=== PATIENT | male | born 1955 | race Caucasian/White ===

== ENCOUNTER 2020-08-15 06:51 | Outpatient (NON) | payer OTHER, SELFPAY ==
[2020-08-16 00:29] LABS: SARS-CoV-2 RNA PCR Negative
== END 2020-08-15 06:52 ==
PROVIDERS: PCP Family Medicine; Visit Provider Family Medicine
DX: Z20.828 Contact with and (suspected) exposure to other viral communicable diseases (principal)
CPT/HCPCS: 87635; C9803; U0003

== ENCOUNTER 2021-04-27 07:20 | Outpatient (CLI) | payer OTHER, SELFPAY ==
[2021-04-27 08:13] LABS: Basophils Absolute Auto 0.1 K/mm3 (0.0-0.1); Basophils Percent Auto 1.3 % (0.2-1.2); Eosinophils Absolute Auto 0.2 K/mm3 (0-0.3); Eosinophils Percent Auto 2.8 % (0-4.4); Hematocrit 43.2 % (42.0-52.0); Hemoglobin 13.7 g/dL (14.0-18.0); Immature Granulocyte Absolute 0.03 K/mm3 (0.00-0.031); Immature Granulocyte Percent A 0.4 % (0-0.5); Lymphocytes Absolute Auto 1.92 K/mm3 (0.9-3.2); Lymphocytes Percent Auto 24.8 % (18.3-44.2); Mean Corpuscular HGB Conc 31.7 g/dl (32-36); Mean Corpuscular Hemoglobin 30.1 pg (26-34); Mean Corpuscular Volume 94.9 fl (80-100); Mean Platelet Volume 11.3 fl (7.4-10.4); Monocytes Absolute Auto 0.9 K/mm3 (0.1-0.6); Monocytes Percent Auto 11.8 % (2.6-8.5); Neutrophils Absolute Auto 4.6 K/mm3 (1.3-6.7); Neutrophils Percent Auto 58.9 % (45.5-73.1); Platelet Count Result 235 k/mm3 (150-375); Red Blood Count 4.55 M/mm3 (4.6-6.20); Red Cell Distribution Width 12.5 % (11.5-14.5); White Blood Count 7.7 K/mm3 (4.5-10.0)
[2021-04-27 08:19] LABS: Alanine Aminotransferase 18 U/L (4-50); Albumin Level 4.7 g/dL (3.5-5.1); Alkaline Phosphatase 56 U/L (38-126); Anion Gap 8 mmol/L (8-16); Aspartate Amino Transferase 25 U/L (17-59); Bilirubin,Total 0.6 mg/dL (0.2-1.3); Blood Urea Nitrogen 14 mg/dL (9-20); Calcium 9.8 mg/dL (8.4-10.2); Carbon Dioxide 30 mmol/L (22-30); Chloride 103 mmol/L (98-107); Cholesterol 267 mg/dL (0-200); Estimated Glomerular Filt Rate > 60; Glucose 103 mg/dL (65-110); HDL Direct 52 mg/dL; Potassium 4.7 mmol/L (3.4-5.0); Sodium 141 mmol/L (137-145); Triglycerides 176 mg/dL (<150)
[2021-04-27 08:30] LABS: LDL Cholesterol Direct 147 mg/dL
[2021-04-27 09:04] LABS: Vitamin D 25 Hydroxy 38.3 ng/mL
[2021-04-27 11:52] LABS: Prostate Specific Antigen 0.5 ng/mL (< OR = 4.0)
== END 2021-04-27 07:21 | disposition home or self-care (01) ==
PROVIDERS: PCP Family Medicine; Visit Provider Nurse Practitioner Family
DX: E55.9 Vitamin D deficiency, unspecified (principal); E78.5 Hyperlipidemia, unspecified; Z12.5 Encounter for screening for malignant neoplasm of prostate; Z13.29 Encounter for screening for other suspected endocrine disorder
CPT/HCPCS: 36415; 80053; 80061; 82306; 84153; 84443; 85025; G0103

== ENCOUNTER 2022-08-15 09:10 | Outpatient (CLI) | payer MEDICARE, OTHER, SELFPAY ==
[2022-08-15 10:05] LABS: Hematocrit 40.7 % (42.0-52.0); Hemoglobin 13.2 g/dL (14.0-18.0); Mean Corpuscular HGB Conc 32.4 g/dl (32-36); Mean Corpuscular Hemoglobin 30.9 pg (26-34); Mean Corpuscular Volume 95.3 fl (80-100); Mean Platelet Volume 11.5 fl (7.4-10.4); Platelet Count Result 226 k/mm3 (150-375); Red Blood Count 4.27 M/mm3 (4.6-6.20); Red Cell Distribution Width 12.9 % (11.5-14.5)
[2022-08-15 10:17] LABS: Anion Gap 7 mmol/L (8-16); Blood Urea Nitrogen 17 mg/dL (9-20); Calcium 9.1 mg/dL (8.4-10.2); Carbon Dioxide 31 mmol/L (22-30); Chloride 100 mmol/L (98-107); Cholesterol 230 mg/dL (0-200); Estimated Glomerular Filt Rate > 60; Glucose 93 mg/dL (65-110); HDL Direct 54 mg/dL; Potassium 4.1 mmol/L (3.4-5.0); Sodium 138 mmol/L (137-145); Triglycerides 103 mg/dL (<150)
[2022-08-15 10:28] LABS: LDL Cholesterol Direct 133 mg/dL
[2022-08-15 10:46] LABS: Prostate Specific Antigen 0.6 ng/mL (< OR = 4.0)
[2022-08-15 13:16] LABS: Vitamin D 25 Hydroxy 41.4 ng/mL
== END 2022-08-15 09:11 | disposition home or self-care (01) ==
LOC: ANHLAB 09:19
PROVIDERS: PCP Family Medicine; Visit Provider Nurse Practitioner Family
DX: R21 Rash and other nonspecific skin eruption (principal); Z13.1 Encounter for screening for diabetes mellitus; E78.5 Hyperlipidemia, unspecified; E78.2 Mixed hyperlipidemia; Z12.5 Encounter for screening for malignant neoplasm of prostate; E55.9 Vitamin D deficiency, unspecified; Z13.29 Encounter for screening for other suspected endocrine disorder
CPT/HCPCS: 36415; 80048; 80061; 82306; 84153; 84443; 85027; G0103

== ENCOUNTER 2022-10-23 00:52 | Day surgery (SDC) | payer MEDICARE, OTHER, SELFPAY ==
[2022-10-10 13:50] VITALS: BMI 23.7
[2022-10-23 09:39] VITALS: BP 170/91; PULSE 79; RESP 18; TEMP 36.2; O2SAT 100
[2022-10-23] MEDS: LACTATED RINGERS 1,000 ML 150 ML IV CONT (09:43)
--- NOTE | 2022-10-23 10:00 | P.PNAN_ITS ---
Anes - Initial Pre Proc Eval Procedure: Operation Date: 10/23/22 11:00 Proposed Procedures p Screening Colonoscopy - Scott Caicedo MD Date/Time: 10/23/22 10:00 Surgeon: Scott Caicedo MD Pre Op Diagnosis: hx of colon polyps Patient Data Age: 67 Gender: M Height: 1.75 m Weight: 71.1 kg Last Vital Signs Temp 97.2 F L 10/23/22 09:39 Pulse 79 10/23/22 09:39 Resp 18 10/23/22 09:39 BP 170/91 H 10/23/22 09:39 Pulse Ox 100 10/23/22 09:39 O2 Del Method Room Air 10/23/22 09:39 Allergies Allergy/AdvReac Type Severity Reaction Status Date / Time No Known Allergies Allergy Verified 10/23/22 09:37 Home Medications Medication Instructions Recorded Confirmed Type multivitamin with minerals-folic 1 tablet PO DAILY 10/10/22 10/23/22 History acid 0.4 mg tablet omega-3 fatty acids-vitamin E 1 cap PO DAILY 10/10/22 10/23/22 History 1,000 mg capsule Patient hx anesthesia problems: none Family hx anesthesia problems: none Results Review: All pre-operative results and documents have been reviewed as part of the pre- operative evaluation. [facility] Past Medical History Medical History AK (actinic keratosis) Basal cell carcinoma of skin, site unspecified BMI 23.0-23.9, adult BMI 24.0-24.9, adult Elevated cholesterol Excessive cerumen in right ear canal Flu vaccine need Heartburn Hiatal hernia History of basal cell carcinoma Mixed hyperlipidemia Screening for colon cancer Screening for diabetes mellitus Screening for lipid disorders Screening for prostate cancer SK (seborrheic keratosis) Skin cancer screening Strep throat Urticaria Family History Family History Father Cerebrovascular accident Family history of diabetes mellitus in first degree relative Family history of coronary artery disease Mother Sibling No problems noted. 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 Spiritual care concerns: No Anes - Eval Final PreProcedure Day of Procedure 10/23/22 10:00 Patient weight: normal Heart: regular rate and rhythm Lungs: clear to auscultation Airway: Mallampati scale class II Neurological: alert and oriented Last oral intake: >/= 8 hours ASA classification: II Emergent: no Anesthetic plan: proceed Anesthesia type and monitoring: general GIVS and standard monitoring Results Review: All pre-operative results and documents have been reviewed as part of the pre- operative evaluation. Informed Consent: The patient's anesthetic plan and its attendant risks and benefits were discussed with the patient/family/POA. Questions were solicited and answers provided to the satisfaction of the patient/family/POA.
--- NOTE | 2022-10-23 10:09 | PM.HPGS ---
History of Present Illness History of Present Illness Consent: Risks, benefits, and alternatives have been discussed and questions answered. Patient agrees to proceed with procedure. Chief complaint: hx of colon polyps Narrative: Sung Cordoba is a 67 year old male with colon polyp 6 years ago Review of Systems Constitutional: Constitutional: Denies headache(s) and Denies weakness Eyes: Eyes: Denies blurry vision ENT: Reports Normal hearing present, Denies headache(s) and Denies neck pain Cardiovascular: Cardiovascular: Denies chest pain and Denies dyspnea Respiratory: Respiratory: Denies dyspnea Gastrointestinal: Gastrointestinal: Reports no additional gastrointestinal complaints Genitourinary: Genitourinary: Denies dysuria Musculoskeletal: Musculoskeletal: Denies neck pain Integumentary/Breasts: Skin/Breast: Denies dry skin Neurologic: Reports Normal hearing present, Denies headache(s) and Denies weakness Psychiatric: Psychiatric: Denies anxiety Endocrine: Endocrine: Denies change in body appearance Hematologic/Lymphatic: Hematologic/Lymphatic: Denies easy bleeding Allergic/Immunologic: Allergic/Immunologic: Denies urticaria PMFSH Past Medical History Medical History AK (actinic keratosis) Basal cell carcinoma of skin, site unspecified BMI 23.0-23.9, adult BMI 24.0-24.9, adult Elevated cholesterol Excessive cerumen in right ear canal Flu vaccine need Heartburn Hiatal hernia History of basal cell carcinoma Mixed hyperlipidemia Screening for colon cancer Screening for diabetes mellitus Screening for lipid disorders Screening for prostate cancer SK (seborrheic keratosis) Skin cancer screening Strep throat Urticaria Family History Family History Father Cerebrovascular accident Family history of diabetes mellitus in first degree relative Family history of coronary artery disease Mother Sibling No problems noted. 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 Spiritual care concerns: No Meds Home Medications and Allergies Home Medications Medication Instructions Recorded Confirmed Type multivitamin with minerals-folic 1 tablet PO DAILY 10/10/22 10/23/22 History acid 0.4 mg tablet omega-3 fatty acids-vitamin E 1 cap PO DAILY 10/10/22 10/23/22 History 1,000 mg capsule Allergies Allergy/AdvReac Type Severity Reaction Status Date / Time No Known Allergies Allergy Verified 10/23/22 09:37 Vital Signs Vital Signs - 24 hr 10/23/22 09:39 Temperature 97.2 F L Pulse Rate 79 Respiratory Rate 18 Blood Pressure 170/91 H Pulse Oximetry 100 Oxygen Delivery Room Air Exam Const: General: comfortable and no acute distress HENMT: Face/Nose/Sinus: Normal nares present Eyes: General: appearance normal, both eyes and all related structures Neck: Neck: no JVD Resp: Auscultation: clear to auscultation bilaterally Cardio: Rate: regular rate Rhythm: regular rhythm GI: Inspection: non-distended GI Palp: Yes Soft to palpation Skin: General skin exam: normal color Neuro: General: gait normal Speech: normal speech Extrem: General: normal to inspection Psych: Mental Status: mental status grossly normal Assessment and Plan Assessment and plan (1) Screening for malignant neoplasm of colon: Code(s): Z12.11 - Encounter for screening for malignant neoplasm of colon Status: Acute Assessment and Plan: colonoscopy
[2022-10-23 10:34] VITALS: BP 144/84; PULSE 71; RESP 20; O2SAT 100
[2022-10-23 10:44] VITALS: BP 143/89; PULSE 77; RESP 16; O2SAT 100
[2022-10-23 10:54] VITALS: BP 166/92; PULSE 68; RESP 17; O2SAT 100
== END 2022-10-23 11:07 | disposition home or self-care (01) ==
PROVIDERS: PCP Family Medicine; Visit Provider Internal Medicine Gastroenterology
PROC: 0DJD8ZZ Inspection of Lower Intestinal Tract, Via Natural or Artificial Opening Endoscopic (ICD-10-PCS; CPT 45378; principal; 2022-10-23 11:00)
DX: Z12.11 Encounter for screening for malignant neoplasm of colon (principal); K63.5 Polyp of colon; D12.2 Benign neoplasm of ascending colon; K64.8 Other hemorrhoids; E78.5 Hyperlipidemia, unspecified; F10.90 Alcohol use, unspecified, uncomplicated; Z85.828 Personal history of other malignant neoplasm of skin; Z79.899 Other long term (current) drug therapy
CPT/HCPCS: 45380; 45385; 88305; J2704; J7120

== ENCOUNTER 2022-12-05 08:28 | Outpatient (CLI) | payer MEDICARE, OTHER, SELFPAY ==
--- NOTE | ~2022-12-05 | MR_ITS ---
EXAMINATION: MR brain/brain stem wo/w con DATE: 12/05/2022 09:42 INDICATION: Pituitary mass. TECHNIQUE: Magnetic resonance imaging (MRI) of the brain and brainstem was performed without and with 14 mL MultiHance intravenous contrast. COMPARISON: None. FINDINGS: The pituitary is enlarged and measures 18 x 18 x 14 mm. There is a 15 x 9 x 10 mm nonenhanc ing cyst with irregular margins in the pituitary. There is rightward deviation of the infundibulum. T here are scattered areas of nonspecific increased T2-weighted signal intensity in the cerebral white matter, which is within normal limits for the patient's age. There is no acute ischemic infarct or in tracranial hemorrhage. The ventricles are normal in size. The orbits are normal. The paranasal sinuse s are clear. The mastoid air cells are normal. IMPRESSION: 1. Enlarged pituitary with central nonenhancing cyst. This finding may be a pituitary macroadenoma or craniopharyngioma with cystic component, or it may be normal pituitary deformed by a Rathke cleft cy st. Reviewed, dictated and finalized at location A. E GRINDER IMPRESSION: 1. Enlarged pituitary with central nonenhancing cyst. This finding may be a pit uitary macroadenoma or craniopharyngioma with cystic component, or it may be no rmal pituitary deformed by a Rathke cleft cyst.
== END 2022-12-05 08:29 | disposition home or self-care (01) ==
PROVIDERS: PCP Family Medicine; Visit Provider Nurse Practitioner Family
DX: G93.89 Other specified disorders of brain (principal); R93.0 Abnormal findings on diagnostic imaging of skull and head, not elsewhere classified
CPT/HCPCS: 70553; A9577

== ENCOUNTER 2025-09-16 07:41 | Outpatient (CLI) | payer MEDICARE, OTHER, SELFPAY ==
[2025-09-16 08:08] LABS: Hematocrit 41.1 % (42.0-52.0); Hemoglobin 13.4 g/dL (14.0-18.0); Immature Granulocyte Percent A 0.2 % (0-0.5); Lymphocytes Absolute Auto 1.69 K/mm3 (0.9-3.2); Mean Corpuscular HGB Conc 32.6 g/dl (32-36); Mean Corpuscular Hemoglobin 30.7 pg (26-34); Mean Corpuscular Volume 94.3 fl (80-100); Nucleated Red Blood Cells Absolute Auto 0.000 K/mm3 (0.0-0.012); Nucleated Red Blood Cells Perc 0.0 % (0.0-0.2); Platelet Count Result 206 k/mm3 (150-375); Red Blood Count 4.36 M/mm3 (4.6-6.20); White Blood Count 8.4 K/mm3 (4.5-10.0)
[2025-09-16 08:32] LABS: Alanine Aminotransferase 30 U/L (6-50); Albumin Level 4.6 g/dL (3.5-5.1); Alkaline Phosphatase 66 U/L (38-126); Anion Gap 5 mmol/L (4-12); Aspartate Amino Transferase 41 U/L (17-59); Bilirubin,Total 0.8 mg/dL (0.2-1.3); Blood Urea Nitrogen 16 mg/dL (9-20); Calcium 9.3 mg/dL (8.4-10.2); Carbon Dioxide 30 mmol/L (22-30); Chloride 102 mmol/L (98-107); Cholesterol 163 mg/dL (0-200); Estimated Glomerular Filt Rate > 60; Glucose 95 mg/dL (65-110); HDL Direct 58 mg/dL; Potassium 4.3 mmol/L (3.4-5.0); Sodium 137 mmol/L (137-145); Total Protein 7.5 g/dL (6.3-8.2); Triglycerides 82 mg/dL (<150)
[2025-09-16 09:09] LABS: Prostate Specific Antigen 1.5 ng/mL (< OR = 4.0); Thyroid Stimulating Hormone 5.130 uIU/mL (0.465-4.680)
== END 2025-09-16 07:42 | disposition home or self-care (01) ==
PROVIDERS: PCP Family Medicine
DX: E55.9 Vitamin D deficiency, unspecified (principal); Z12.5 Encounter for screening for malignant neoplasm of prostate; I10 Essential (primary) hypertension; E78.2 Mixed hyperlipidemia; E23.6 Other disorders of pituitary gland
CPT/HCPCS: 36415; 80053; 80061; 82306; 84153; 84443; 85025; G0103

== ENCOUNTER 2025-09-27 11:49 | Outpatient (CLI) | payer MEDICARE, OTHER, SELFPAY ==
--- OUTSIDE RECORDS SUMMARY | 2025-09-27 12:05 | XMS_ITS | Clinical Summary ---
Author Organization [facility] Address [address] [place] [address] Phone Care Team Providers Care Tube And Manifold Builder Name Role Phone Amalia Avila TOOTH GRINDER, KNITTING MACHINE FIXER Primary Care Provide r Markell Hayes MD Unavailable [phone] Sonia Forbes MD Unavailable Allergies No known active allergies Medications Multiple Vitamins-Facility Manager Histology als (MULTIVITAMIN ADULTS PO) Take by mouth. With minerals- folic acid Active [place]-3 Fatty Acids (OMEGA 3 PO) Take by mouth. Activ e amLODIPine (NORVASC) 5 MG Tablet Take 5 mg by mouth daily. Active COVID-19 mRNA Vaccine, Pfizer, 30 MCG/0.3ML Suspension 2 Active atorvastatin (LIPITOR) 10 MG Tablet Take 1 Tablet by mouth daily. 90 Tablet 3 3 Active aspirin EC 81 MG Tablet Delayed Response Take 81 mg by mouth daily. Active cabergoline (DOSTINEX) 0.5 MG TabletIndicati ons:Hyperprola ctinemia Take 0.5 Tablets by mouth twice a week. 4 Tablet 3 5 Active dexamethasone (DECADRON) 1 MG Tablet Take dexamethasone 1 mg at 11:00 pm and check morning cortisol as directed 1 Tablet Active Encounters Date Type Department Care Team Description 09/05/2025 Results Follow-Up [facility] Endocrinology [facility] [address] [place] [address] Sonia Forbes MD PROLACTIN, CORTISOL, CMP (COMPREHENSIVE METABOLIC PANEL) 08/29/2025 Travel 08/09/2025 10:00 AM SPINDLE PLUMBER Office Visit [facility] Neurology [facility] [address] [place] [address] Markell Hayes MD Pituitary lesion (Primary Dx) Discharge Disposition: Discharged to home or Selfcare 08/09/2025 9:00 AM SPINDLE PLUMBER Office Visit [facility] Endocrinology [facility] [address] [place] [address] Sonia Forbes MD Hyperprolactinemia (Primary Dx); Pituitary lesion; Prolactinoma Discharge Disposition: Discharged to home or Selfcare 08/09/2025 Travel from Last 3 Months Family History Medical History Relation Name Comments Stroke Father Lung Cancer Mother Relation Name Status Comments Father Mother Social History Tobacco Use Types Packs/Day Years Used Date Smoking Tobacco: Never Smokeless Tobacco: Never Tobacco Cessation:Counseling Given: Not Answered Alcohol Use Standard Drinks/Week Comments Yes 0 (1 standard drink = 0.6 oz pur e alcohol) 1 per week Sex and Gender Information Value Date Recorded Sex Assigned at Not on file Legal Sex Male 3:13 PM CDT Gender Identity Not on file Sexual Orientation Not on file Last Filed Vital Signs Vital Sign Reading Time Taken Comments Blood Pressure 116/66 08/09/2025 9:57 AM SPINDLE PLUMBER Pulse 67 08/09/2025 9:57 AM SPINDLE PLUMBER Temperature 36.4 C (97.6 F) 08/09/2025 9:57 AM SPINDLE PLUMBER Respiratory Rate 16 08/09/2025 9:57 AM SPINDLE PLUMBER Oxygen Saturation 100% 08/09/2025 9:57 AM SPINDLE PLUMBER Inhaled Oxygen Concentration - - Weight 69.2 kg (152 lb 9.6 oz) 08/09/2025 9:57 A M SPINDLE PLUMBER Height 175.3 cm (5' 9) 08/09/2025 9:57 AM SPINDLE PLUMBER Body Mass Index 22.54 08/09/2025 9:57 AM SPINDLE PLUMBER Plan of Treatment Health Maintenance Due Date Last Done Comments Hepatitis C Virus (HCV) Screening 1956 Cologuard 2001 Colonoscopy 2001 Colorectal Cancer Screening 2001 Immunochemical Fecal Occult Blood 2001 Pneumococcal Immunization (50+ years) (1 of 1 - PCV) 2006 Zoster Immunization (1 of 2) 2006 PSA Discussion 2011 Medicare Initial AWV [id number] 06/06/2022 SARS-COV-2 Immunization ( season) 2025 08/31/2024, 07/22/2023, 04/11/2022, Additional history exists Respiratory Syncytial Virus (RSV) Immunization (Adult) (1 - 1-dose 75+ series) 2031 Hepatitis B Immunization Completed 002, 05/22/2001, 02/23/2001 DTaP/Tdap/Td Immunization Discontinued 2018, 01/09/2000, 05/19/1990 TdaP Immunization Completed 03/28/2019 Influenza Immunization Completed , 07/29/2024, 08/06/2023, Additional history exists Human Papillomavirus (HPV) Immunization (No Doses Required) Completed Meningococcal Immunization (ACWY) Aged Out No longer eligible based on patient's age to complete this topic Rotavirus Immunization Aged Out No lo nger eligible based on patient's age to complete this topic Procedures Procedure Name Priority Date/Time Associated Diagnosis Comments CMP (COMPREHENSIVE METABOLIC PANEL) Routine 08/29/2025 8:11 AM SPINDLE PLUMBER Hyperprolactinemia Prolactinoma CORTISOL Routine 08/29/2025 8:11 AM SPINDLE PLUMBER Hyperprolactinemia Prolactinoma PROLACTIN Routine 08/29/2025 8:11 AM SPINDLE PLUMBER Hyperprolactinemia Prolactinoma from Last 3 Months Results * PROLACTIN (08/29/2025 8:11 AM SPINDLE PLUMBER) Prolactin 16.7 2.6 - 18.1 ng/mL 08/29/2025 6:27 PM SPINDLE PLUMBER [facility] Blood Venipuncture / Unknown 08/29/2025 8:11 AM SPINDLE PLUMBER 08/29/2025 8:52 AM SPINDLE PLUMBER us Sonia Forbes MD CHEMISTRY ORDERABLES Final Resul t Performing Organization Address City/[facility]/ZIP Co de Phone Number [facility] [address] [place] [address], [place] * CORTISOL (08/29/2025 8:11 AM SPINDLE PLUMBER) CORTISOL 1.1 mcg/dL 08/29/2025 10:19 AM SPINDLE PLUMBER [facility] Blood Venipuncture / Unknown 08/29/2025 8:11 AM SPINDLE PLUMBER 08/29/2025 8:52 AM SPINDLE PLUMBER Narrative [facility] - 08/29/2025 10:19 AM SPINDLE PLUMBER AM: 4 TO 19 mcg/dL PM: Approx. Half of AM Value us Sonia Forbes MD CHEMISTRY ORDERABLES Final Resul t Performing Organization Address City/[facility]/ZIP Co de Phone Number [facility] [address] [place] [address] * (ABNORMAL) CMP (COMPREHENSIVE METABOLIC PANEL) (08/29/2025 8:11 AM SPINDLE PLUMBER) SODIUM 140 136 - 145 mmol/L 08/29/2025 9:15 AM SPINDLE PLUMBER [facility] POTASSIUM 5.1 3.5 - 5.1 mmol/L 08/29/2025 9:15 AM SPINDLE PLUMBER [facility] CHLORIDE 102 98 - 107 mmol/L 08/29/2025 9:15 AM SPINDLE PLUMBER [facility] CO2, VENOUS 28 22 - 30 mmol/L 08/29/2025 9:15 AM SPINDLE PLUMBER [facility] ANION GAP 15.1 <18.0 mmol/L 08/29/2025 9:15 AM SPINDLE PLUMBER [facility] GLUCOSE 105(H) 70 - 99 mg/dL 08/29/2025 9:15 AM [facility] BUN 16 8 - 26 mg/dL 08/29/2025 9:15 AM [facility] CREATININE, BLOOD 1.02 0.70 - 1.30 mg/dL 08/29/2025 9:15 AM [facility] BUN/CREATININE RATIO 16 12 - 20 ratio 08/29/2025 9:15 AM [facility] TOTAL PROTEIN 8.0 6.0 - 8.0 g/dL 08/29/2025 9:15 AM [facility] ALBUMIN 5.0 3.5 - 5.0 g/dL 08/29/2025 9:15 AM [facility] A/G RATIO 1.7 1.0 - 2.2 08/29/2025 9:15 AM [facility] CALCIUM 10.0 8.7 - 10.5 mg/dL 08/29/2025 9:15 AM [facility] T BILI 0.8 0.2 - 1.2 mg/dL 08/29/2025 9:15 AM [facility] SGOT (AST) 36 <43 U/L 08/29/2025 9:15 AM [facility] Comment: Specimen is hemolyzed. In vitro hemolysis could affect results. Clinical correlation advised. SGPT (ALT) 30 <56 U/L 08/29/2025 9:15 AM [facility] ALKALINE PHOSPHATASE 76 40 - 150 U/L 08/29/2025 9:15 AM [facility] IS THE PATIENT REQUIRED TO BE FASTING? No 08/29/2025 9:15 AM [facility] GFR, ESTIMATED >60 >=60 08/29/2025 9:15 AM [facility] Comment: Creatinine Clearance is the preferred criteria for selecting drug dose adjustments in renally impaired patients. The GFR is provided as additional pertinent clinical information. GFR is reported in mL/min/1.73 sq m. Calculation based on the 2020 Chronic Kidney Disease Epidemiology Collaboration (CKD-EPI) equation refit without adjustment for race. GFR, EST. >60 >=60 025 9:15 AM SPINDLE PLUMBER [facility] Comment: Creatinine Clearance is the preferred criteria for selecting drug dose adjustments in renally impaired patients. The GFR is provided as additional pertinent clinical information. GFR is reported in mL/min/1.73 sq m. Calculation based on the 2009 Chronic Kidney Disease Epidemiology Collaboration (CKD-EPI). GFR, EST. NONAFRICAN >60 >=60 08/29/2025 9:15 AM SPINDLE PLUMBER [facility] Comment: Creatinine Clearance is the preferred criteria for selecting drug dose adjustments in renally impaired patients. The GFR is provided as additional pertinent clinical information. GFR is reported in mL/min/1.73 sq m. Calculation based on the 2009 Chronic Kidney Disease Epidemiology Collaboration (CKD-EPI). Blood Venipuncture / Unknown 08/29/2025 8:11 AM SPINDLE PLUMBER 08/29/2025 8:52 AM SPINDLE PLUMBER us Sonia Forbes MD CHEMISTRY ORDERABLES Final Resul t [facility] [address] [place] [address] from Last 3 Months Insurance MEDICARE [employer] Care Teams Tube And Manifold Builder Relationship Specialty Start Date End Date Amalia Avila, TOOTH GRINDER, KNITTING MACHINE FIXER [address] [place] [address] PCP - General Family Medicine 03/17/23 Markell Hayes MD [address] [place] [address] Consulting Physician Neurology 07/21/23 Sonia Forbes MD [address] [place] [phone] Consulting Physician Endocrinology 11/24/23
--- OUTSIDE RECORDS SUMMARY | 2025-09-27 12:05 | XMS_ITS | Clinical Summary ---
Author Organization [facility] [employer] Address [address] [place] [address] Care Team Providers Care Bottom Liner Name Role Phone Aiden Rikcs MD Primary Care Provider [phone] Source Comments [facility] [employer] [facility] [facility],non-owned Affiliates and Associated Physician Practices is amultiple site organization consisting of ambulatory clinics and hospital sitesin [place], [place], [place] and [place]. This disclosure is being madepursuant to the Care Everywhere program and may not contain all information available regarding this patient. Last updated 18.[facility] Allergies No known active allergies Medications * Be aware that medications may not be up to date on this document. Alwaysverify current medications with the patient. No known medications Immunizations Immunization Administration Dates Next Due TDAP (7yrs+) 03/28/2019 Social History Tobacco Use Types Packs/Day Years Used Date Smoking Tobacco: Never Smokeless Tobacco: Never Alcohol Use Standard Drinks/Week Comments Yes 0 (1 standard drink = 0.6 oz pur e alcohol) rare Sex and Gender Information Value Date Recorded Sex Assigned at Not on file Legal Sex Male 7:34 PM CDT Gender Identity Not on file Sexual Orientation Not on file Last Filed Vital Signs Vital Sign Reading Time Taken Comments Blood Pressure 169/75 03/28/2019 7:39 PM CDT Pulse 61 03/28/2019 7:39 PM CDT Temperature 36.4 C (97.5 F) 03/28/2019 7:39 PM CDT Respiratory Rate 17 03/28/2019 7:39 PM CDT Oxygen Saturation 97% 03/28/2019 7:39 PM CDT Inhaled Oxygen Concentration - - Weight 74.8 kg (165 lb) 03/28/2019 7:39 PM CDT Height 175.3 cm (5' 9) 03/28/2019 7:39 PM CDT Body Mass Index 24.37 03/28/2019 7:39 PM CDT Plan of Treatment Health Maintenance Due Date Last Done Comments COLOGUARD (AGES 45-75) - COL ON CA SCREENING 1956 COLON MONITORING 1956 COLONOSCOPY - COLON CA SCREENING 1956 CT COLONOGRAPHY - COLON CA SCREENING 1956 Colorectal Cancer Screening 1956 FIT - COLON CA SCREENING 1956 FLEX SIG - COLON CA SCREENING 1956 LIPID TESTING 1956 HEPATITIS C SCREENING 06/28/1974 PNEUMOCOCCAL VACCINE 50+ (1 of 1 - PCV) 2006 ZOSTER VACCINE (1 of 2) 2006 DEPRESSION SCREENING 10/06/2024 COVID-19 VACCINE (1 - 2024-2 6 season) 2025 INFLUENZA VACCINE (#1) 2025 DTAP/TDAP/TD VACCINES (2 - T d or Tdap) 03/28/2029 03/28/2019 Respiratory Syncytial Virus (RSV) Vaccine Pt: or over 60 yrs (1 - 1-dose 75+ series) 2031 HEPATITIS B VACCINE Aged Out No longe r eligible based on patient's age to complete this topic HIB VACCINE Aged Out No longer eligi ble based on patient's age to complete this topic HPV VACCINE Aged Out No longer eligi ble based on patient's age to complete this topic MENINGOCOCCAL (Group B) VACC INE SHARED DECISION-MAKING Aged Out No longer eligibl e based on patient's age to complete this topic MENINGOCOCCAL GROUPS A/C/Y/W VACCINE Aged Out No longer eligible b ased on patient's age to complete this topic Insurance MEDICARE [facility] Care Teams Bottom Liner Relationship Specialty Start Date End Date Aiden Ricks MD [address] [place] [address] PCP - General Family Medicine 03/28/19
[2025-09-27 12:31] LABS: Hematocrit 41.0 % (42.0-52.0); Hemoglobin 13.5 g/dL (14.0-18.0); Mean Corpuscular HGB Conc 32.9 g/dl (32-36); Mean Corpuscular Hemoglobin 31.0 pg (26-34); Mean Corpuscular Volume 94.3 fl (80-100); Platelet Count Result 221 k/mm3 (150-375); Red Blood Count 4.35 M/mm3 (4.6-6.20); White Blood Count 7.7 K/mm3 (4.5-10.0)
[2025-09-27 12:57] LABS: Iron 85 ug/dL (49-181)
[2025-09-27 13:07] LABS: Percent Iron Saturation 26 % (20-50)
[2025-09-27 14:04] LABS: Vitamin B12 566.0 pg/mL (239-931)
== END 2025-09-27 11:50 | disposition home or self-care (01) ==
PROVIDERS: PCP Family Medicine; Visit Provider Nurse Practitioner Family
DX: D64.9 Anemia, unspecified (principal); Z85.828 Personal history of other malignant neoplasm of skin
CPT/HCPCS: 36415; 82607; 82746; 83540; 83550; 85027